=== PATIENT | male | born 1980 | race Caucasian/White ===

== ENCOUNTER → 2016-09-20 15:30 | Emergency (ER) | payer OTHER | END | disposition left against medical advice (07) | LOC: CED 15:30 | DX: Z53.21 Procedure and treatment not carried out due to patient leaving prior to being seen by health care provider (principal) ==

== ENCOUNTER 2017-02-14 17:00 | Inpatient (IN) | payer OTHER ==
[~2017-02-14] VITALS: Ht 177.8 cm; Wt 68.0 kg
--- NOTE | ~2017-02-14 | DS ---
Unit #: [id number] #: [id number] Patient: JAIRO NGUYỄN [id number] [facility] [address] [place] [address] [id number] MR#: [id number] NAME: JAIRO NGUYỄN ROOM: [facility] Age: 36 Sex: M Admission Date: 02/14/2017 : 1980 Discharge Date: 02/18/2017 Attending Physician: Hank Gomez M.D. Primary Care Physician: No Primary Care Physician DISCHARGE SUMMARY REASON FOR ADMISSION Jairo is a 36-year-old man who presented with reports of suicidal ideation and an attempt to harm himself by cutting his arm. He had also been using heroin and alprazolam and was admitted for stabilization. DIAGNOSTIC STUDIES LABORATORY DATA: Please see hospital chart. HOSPITAL COURSE The patient was admitted and placed on suicidal precautions as well as the opiate detox protocol. Previously reported effective medications of Remeron 30 mg at bedtime for depression and amitriptyline 100 mg at bedtime for sleep were restarted. The patient was somewhat irritable about his nutritional needs and was provided with ensure at bedtime. His mood improved and on the day of discharge he was able to contract for safety in the outpatient setting. DISCHARGE DIAGNOSES [place] I Major depression. Opiate dependence. [place] II No diagnosis. [place] III History of hepatitis C, recent self-inflicted lacerations. [place] IV [place] V FOLLOWUP CARE Instructed the patient to follow up with chemical dependence programming of his choice and primary care physician. DISCHARGE MEDICATIONS 1. Remeron 30 mg at bedtime for depression. 2. Amitriptyline 100 mg at bedtime for insomnia. CONDITION AT DISCHARGE Improved. PROGNOSIS Fair to good. DIET AND ACTIVITY Per primary care doctor. Unit #: [id number] #: [id number] Patient: JAIRO NGUYỄN Dictated by... Ceci Tavarez/antonio TD: 02/20/2017 12:34 JOB #: [id number] DISCHARGE SUMMARY Page 1 of 1 X Hank Gomez MD X DISCHARGE SUMMARY
--- NOTE | ~2017-02-14 | PN ---
Unit #: [id number] #: [id number] Patient: BRIGETTE CONSTANTINO [id number] [facility] [address] [place] [address] [id number] MR#: [id number] NAME: BRIGETTE CONSTANTINO ROOM: [facility] Age: 36 Sex: M Admission Date: 02/14/2017 : 1980 Attending Physician: Hank Gomez M.D. Admitting Physician: Hank Gomez M.D. Primary Care Physician: Primary Care Physician Tammy TRIANA PROGRESS NOTES DATE 02/17/2017 DISCUSSION Mr. Constantino says that his detox symptoms are proceeding and that he has less abdominal cramping right now. He also says his "food issues" are improving. His mood is irritable with a decreased range of affect and he denies any improvement in his depression since admission. He has ongoing suicidal ideation but no psychosis. ASSESSMENT Major depression, polysubstance tendons. PLAN Continue current medications and detox protocol. Dictated by... Ceci Tavarez/faby TD: 02/18/2017 23:06 JOB #: [id number] [facility] PROGRESS NOTES Page 1 of 1 X Hank Gomez MD X PROGRESS NOTE
--- NOTE | ~2017-02-14 | PA ---
Unit #: [id number] #: [id number] Patient: JAIRO CONSTANTINO [id number] [facility] [address] [place] [address] [id number] I MR#: [id number] NAME: JAIRO CONSTANTINO ROOM: P183 Age: 36 Sex: M Admission Date: 02/14/2017 : 1980 Date of Assessment: 02/15/2017 Attending Physician: Hank Gomez M.D. Admitting Physician: Hank Gomez M.D. Primary Care Physician: Primary Care Physician No PSYCHIATRIC ASSESSMENT DATE OF SERVICE 02/15/2017. INFORMANTS The patient reliable; OLOP, reliable. CHIEF COMPLAINT Severe depression. HISTORY OF PRESENT ILLNESS Jairo Constantino is a 36-year-old man who presented reporting he had cut himself with a box knife in an attempt to harm himself and has been using 0.5 g daily together with alprazolam. He had ongoing suicidal thoughts and had no homicidal ideation. He was unable to contract for safety and was admitted for treatment and stabilization. PAST PSYCHIATRIC HISTORY Previous treatments for overdose at local facilities, but no previous psychiatric inpatient care. He does not currently take psychiatric medications. FAMILY PSYCHIATRIC HISTORY The patient reports that both of his parents had "bipolar disorder." SOCIAL HISTORY The patient denied any history of childhood abuse or neglect. He is a heterosexual man who is recently lost a relationship with a girlfriend and is living with his parents. He has a GED and is unemployed. PAST MEDICAL HISTORY Significant for hepatitis C. MEDICATIONS None currently. ALLERGIES The patient has an allergy to iodine and shellfish derivatives. SUBSTANCE USE HISTORY As noted above. MENTAL STATUS EXAMINATION The patient presented as a mildly disheveled man who appeared his stated Unit #: [id number] #: [id number] Patient: JAIRO CONSTANTINO age. He was cooperative with the examination. His speech was spontaneous and easily understood. His musculoskeletal examination was calm. His mood was depressed with a congruent affect. He was alert and fully oriented. His memory and concentration were intact. His thought processes were logical with no active psychosis. He reported suicidal ideation with a plan to cut himself and could not contract for safety outside of the hospital. His insight and judgment were fair. His fund of knowledge and abstraction were fair. ASSETS AND LIABILITIES Assets; the patient knows local resources and presents voluntarily for treatment. Liabilities; include difficulty maintaining sobriety and unemployment. ADMITTING DIAGNOSES AXIS I: Major depressive disorder, F33.2; opioid dependence, withdrawal, uncomplicated, F11.23. AXIS II: No diagnosis. AXIS III: Recent self-inflicted lacerations, history of hepatitis C. AXIS IV: AXIS V: PSYCHIATRIC PLAN The patient was admitted and placed on suicide precautions and the opioid detox protocol. We will reinitiate Remeron 30 mg at bedtime for depression and amitriptyline 100 mg at bedtime for sleep, combination the patient states has been effective for him in the past. He will enroll in dual diagnosis groups and activities. We will also provide larger portions and Ensure due to his recent weight loss. TREATMENT GOALS Resolution of SI, establishment of sobriety, improvement in insight, and improvement in coping skills. DISCHARGE PLANNING Follow up with primary care physician and community mental health. ESTIMATED LENGTH OF STAY 5 days. Dictated by... Hank Gomez M.D. NEO/elizabeth TD: 02/17/2017 13:41 JOB #: [id number] Unit #: [id number] #: [id number] Patient: JAIRO CONSTANTINO PSYCHIATRIC ASSESSMENT Page 1 of 1 X Hank Gomez MD X PSYCHIATRIC ASSESSMENT
--- NOTE | ~2017-02-14 | A ---
[facility] Nutrition Therapy DATE: 02/15/17 Patient: BRIGETTE NGUYỄN Physician: STUART Address: [address] Room/Bed: [address], Zip: [place] [address] Admit Date: 02/14/17 Date of : [birth year] Height: 5 10 Weight: 149 68.0388 NUTRITIONAL ASSESSMENT: REASON: UNINTENTIONAL WEIGHT LOSS PATIENT ADMITTED FOR DEPRESSION AND SUBSTANCE ABUSE PMH: HEP C Anthropometrics: HT: 70", WT: 150#, BMI: 21.5 Labs: 02/15/17- NUTRITION LABS ESSENTIALLY WNL Meds: KAY GUAJARDO, DETOX PROTOCOL Assessment: PATIENT IS A 36 Y/O MALE ADMITTED FOR DEPRESSION AND SUBSTANCE ABUSE. PATIENT IS CURRENTLY UNEMPLOYED, LIVES WITH HIS PARENTS, SMOKES 1 PPD, HAS DAILY HEROIN AND METH USE, AND FREQUENT XANAX USE. UPON ADMIT PATIENT STATED A POOR APPETITE WITH A 30# WEIGHT LOSS, AND HE IS NOT SLEEPING. CURRENT PO INTAKES ARE NOT AVAILABLE. WEIGHT HX PER [employer] SHOWS NO WEIGHT CHANGE X 4 MONTHS. THERE ARE NO SKIN OR GI ISSUES NOTED ATT. PATIENT IS ACTIVELY DETOXING. HE IS ON A REGULAR DIET WITH LARGE ENTREES, AND HE RECEIVES ENSURE TID. PATIENT'S BMI IS WITHIN A HEALTHY RANGE. Dx: UNINTENTIONAL WEIGHT LOSS R/T DRUG USE, DEPRESSION AEB SELF-REPORTED WEIGHT LOSS, NUTRITIONAL RISK POINT Intervention: REGULAR DIET, MEDS PER MD, DETOX, PSYCH Monitoring, Evaluation and Goals: 1. ADEQUATE PO INTAKES > 50% OF MEALS 2. PREVENT, CORRECT MICRO/MACRO NUTRIENT DEFICIENCIES 3. WEIGHT; MAINTAIN CURRENT WEIGHT, PREVENT WEIGHT LOSS MONITOR: WEIGHTS, LABS, PO/FLUID INTAKES Recommendations: 1. CONTINUE REGULAR DIET TOLERATED. RECOMMEND TO D/C EITHER LARGE PORTION ENTREES OR ENSURE TID D/T NO NUTRITIONAL NEED FOR AN EXCESSIVE CALORIC INTAKE. PATIENT'S NEEDS ARE ESTIMATED TO BE 0252-6887 KCALS/DAY. HE IS CURRENTLY RECEIVING 9126-7074 KCAL/DAILY WITH MEALS, 1050KCALS WITH ENSURE, AND ~500-1500 KCALS DAILY THROUGH LARGER PORTIONS. THIS TOTALS ~3550 - 4750 KCALS/DAY WHICH IS ROUGHLY 6622-0758 KCALS OVER HIS ESTIMATED NEEDS. 2. OBTAIN WEIGHTS ROUTINELY (EVERY 3-4 DAYS) [facility] Therapy DATE: 02/15/17 Patient: BRIGETTE NGUYỄN Physician: STUART Address: [facility] [address] Room/Bed: [address], Zip: [place] [address] Admit Date: 02/14/17 Date of : [birth year] Height: 5 10 Weight: 149 68.0388 3. ENCOURAGE ADEQUATE! PO INTAKES RD TO F/U PER PROTOCOL AND PRN R/T PATIENT MILDLY COMPROMISED Respectfully, JORDIN VIVEROS RD, LD [facility] cc: client file
--- NOTE | ~2017-02-14 | HP ---
Unit #: [id number] #: [id number] Patient: BRIGETTE NGUYỄN [id number] [place] [address] [id number] I MR#: [id number] NAME: BRIGETTE NGUYỄN ROOM: [facility] Age: 36 Sex: M Admission Date: 02/14/2017 : 1980 Attending Physician: Hank Gomez M.D. Admitting Physician: Hank Gomez M.D. Primary Care Physician: Primary Care Physician No HISTORY AND PHYSICAL HISTORY OF PRESENT ILLNESS The patient is a 36-year-old male, admitted to [facility] on 02/14/2017 for suicidal ideations and heroin abuse. PAST MEDICAL HISTORY The patient denies; however, in his chart it notes hepatitis C. PAST SURGICAL HISTORY The patient denies. SOCIAL HISTORY He is unemployed, he lives with his parents, he smokes one pack of cigarettes daily, uses a half gram of heroin per day, and one gram of methamphetamines daily. FAMILY MEDICAL HISTORY Noncontributory. ALLERGIES Shellfish CURRENT MEDICATIONS The patient is not on any home medications. REVIEW OF SYSTEMS CONSTITUTIONAL: No fever or chills. HEENT: Denies any sore throat, ear pain or runny nose. CARDIOVASCULAR: Denies chest pain, irregular heart rhythm or palpitations. CHEST: Denies shortness of breath or cough. No hemoptysis. GASTROINTESTINAL: Denies nausea, vomiting, diarrhea or chronic constipation. ENDOCRINE: Denies history of increased thirst or urination. No recent significant weight loss or gain. GENITOURINARY: Denies dysuria, frequency, or hematuria. SKIN: Denies any rashes. HEMATOLOGIC: Denies history of increased bleeding or bruising. MUSCULOSKELETAL: Denies any hot, swollen joints. No generalized muscle pain. NEUROLOGIC: Denies problems with vision or speech. No frequent, severe headaches. No numbness, tingling or weakness in any extremities. Denies loss of bladder or bowel control. PHYSICAL EXAMINATION Unit #: [id number] #: [id number] Patient: BRIGETTE NGUYỄN GENERAL: He is awake, alert, oriented, and in no acute distress. VITAL SIGNS: Temperature 97.8, heart rate 67, respirations 16, and blood pressure 158/80. HEIGHT: 5 feet 10 inches. WEIGHT: 150 pounds. SKIN: Warm and dry without rash or lesion. HEENT: Normocephalic. TMs not viewed. Oral and nasal passages clear. Conjunctivae clear. PERRLA. EOMs intact. NECK: Supple without lymphadenopathy or thyromegaly. HEART: Regular rate and rhythm without murmur. LUNGS: Clear. ABDOMEN: Soft, nontender. : Not done. EXTREMITIES: No evidence of cyanosis, clubbing or edema. Moves all without focal deficit. NEUROLOGICAL: Grossly within normal limits. Cranial Nerves: II: Visual dias are intact. III, IV AND : Extraocular movements are intact. Pupils are equal, round and reactive to light. V: Facial sensation is grossly normal. VII: Facial movements and expression are normal. VIII: Auditory acuity grossly intact. IX, X: Uvula is midline. Phonation is normal. XI: Patient shrugs shoulders and turns head normally. XII: Tongue protrudes in the midline. Sensory and Motor Function: Sensory and motor sensation is grossly normal. Motor: moves all extremities well. Coordination: Gait is normal. Deep Tendon Reflexes: Intact. IMPRESSION 1. Psychiatric admission. 2. Drug abuse. 3. Nicotine dependence. 4. Hepatitis C. RECOMMENDATIONS Psychiatric, per psychiatrist. MEDICAL No contraindications to participating in facility's activities. MEDICAL PROGNOSIS Good. MEDICAL CONDITION Stable. Dictated by... Cody Carbajal TD: 02/15/2017 12:04 JOB #: [id number] Unit #: [id number] #: [id number] Patient: BRIGETTE NGUYỄN HISTORY AND PHYSICAL Page 1 of 1 X SHELLIE KOCH APRN HISTORY AND PHYSICAL
[2017-02-15 09:43] LABS: BASOPHIL# 0.1 X10e3 (0-0.3); BASOPHIL% 0.7 % (0-2.5); EOSINOPHIL# 0.4 X10e3 (0-0.7); EOSINOPHIL% 4.3 % (0.0-7.0); HEMOGLOBIN 14.7 gm/dL (13.0-16.0); LYMPHOCYTE# 3.2 X10e3 (1.0-3.5); LYMPHOCYTE% 37.2 % (17.0-45.0); MEAN CELL VOLUME 83.2 FL (83-96); MEAN CORPUSCULAR HEMOGLOBIN 28.5 PG (28-34); MEAN CORPUSCULAR HGB CONC 34.2 g/dL (30-36); MEAN PLATELET VOLUME 7.7 FL (6.5-11.5); MONOCYTE# 0.7 X10e3 (0-1.0); MONOCYTE% 7.8 % (3.0-12.0); NEUTROPHIL# 4.3 X10e3 (1.5-7.1); PLATELET COUNT 251 X10e3 (140-420); RED BLOOD COUNT 5.16 X10e (3.90-5.60); RED CELL DISTRIBUTION WIDTH 13.3 % (11.0-15.5); WHITE BLOOD COUNT 8.7 X10e3 (4.0-10.5)
[2017-02-15 09:46] LABS: DIFF IND NO
[2017-02-15 09:54] LABS: ALBUMIN SERUM 3.3 g/dL (3.5-5.0); BUN/CREATININE RATIO 22.22; CALCIUM SERUM 9.5 mg/dL (8.4-10.2); CREATININE SERUM 0.9 mg/dL (0.6-1.4); POTASSIUM 4.8 mmol/L (3.5-5.1); PROTEIN TOTAL SERUM 6.2 g/dL (6.0-8.3)
[2017-02-15 10:54] LABS: AMPHETAMINE POS (NEG); BARBITURATES NEG (NEG); BENZODIAZEPINES NEG (NEG); COCAINE NEG (NEG); MARIJUANA NEG (NEG); OPIATES POS (NEG); TRICYCLIC ANTIDEPRESSANTS NEG (NEG); U METHADONE NEG (NEG)
== END 2017-02-18 13:05 | disposition home or self-care (01) | DRG 881 ==
LOC: P1E 18:07
PROVIDERS: Psychiatry & Neurology Psychiatry
PROC: HZ2ZZZZ Detoxification Services for Substance Abuse Treatment (ICD-10-PCS; principal; 2017-02-15)
DX: F32.9 Major depressive disorder, single episode, unspecified (principal); F11.23 Opioid dependence with withdrawal; B19.20 Unspecified viral hepatitis C without hepatic coma
CPT/HCPCS: 80053; 80307; 85025; 86592